=== PATIENT | male | born 1985 | race Caucasian/White ===

== ENCOUNTER 2020-12-19 10:56 | Outpatient (CLI) | payer OTHER, SELFPAY ==
--- NOTE | ~2020-12-19 | MR_ITS ---
EXAMINATION: MR brain IAC wo/w con DATE: 12/19/2020 12:14 INDICATION: Dizziness. Tinnitus. TECHNIQUE: Magnetic resonance imaging (MRI) of the brain, brainstem, and internal auditory canals was performed without and with 16 mL MultiHance intravenous contrast. Sequences included sagittal and ax ial T1-weighted FSE, axial diffusion-weighted FS EPI, axial T2*-weighted GRE, axial T2-weighted FLAIR Propeller, axial T2-weighted Propeller, small cqrxa-ww-fcca coronal FIESTA, small svpox-sa-fhqs yasmine nal T1-weighted FSE, and small yvgrl-qs-cejs axial T1-weighted SPGR. Postcontrast sequences included axial T1-weighted FSE, small ccgqn-sa-yvsd coronal T1-weighted FSE, and small cbslg-ge-aylr axial T1- weighted SPGR. Apparent diffusion coefficient (ADC) maps were created. COMPARISON: None. FINDINGS: There is no intracranial hemorrhage, acute infarction, or abnormal intracranial mass lesion . The ventricles are normal in size. There is mild mucosal thickening in the paranasal sinuses. The i nternal auditory canals and inner and middle ears are normal. The mastoid air cells are normal. There are no pathologically enlarged lymph nodes. IMPRESSION: 1. Normal brain. Reviewed, dictated and finalized at location A. IMPRESSION: 1. Normal brain.
[2020-12-19 11:35] LABS: Estimated Glomerular Filt Rate > 60
== END 2020-12-19 10:57 | disposition home or self-care (01) ==
PROVIDERS: Visit Provider Otolaryngology
DX: R42 Dizziness and giddiness (principal)
CPT/HCPCS: 70553; A9577

== ENCOUNTER 2021-01-02 07:53 | Outpatient (CLI) | payer OTHER, SELFPAY | END 2021-01-02 07:54 | disposition home or self-care (01) | LOC: ANHAUDIO 07:55 | PROVIDERS: Visit Provider Otolaryngology | DX: R42 Dizziness and giddiness (principal) | CPT/HCPCS: 92537; 92540; 92546 ==

== ENCOUNTER 2021-01-11 07:50 | Outpatient (RCR) | payer OTHER, SELFPAY ==
--- NOTE | 2021-01-11 09:28 | PTOPEVAL ---
PHYSICAL THERAPY EVALUATION AND PLAN OF CARE 01-11-21 Thank you for referring Jony Galindo to [facility] for the diagnosis of dizziness. Jony is scheduled to be seen for therapy? 1 x/week for 6 weeks. His treatment will be initiated for cervicogenic and headaches as the cause of his dizziness, with continuing to monitor for other vestibular issues. Please review, sign, date and return this plan of care EDGAR. I agree with and certify that the following plan of care is medically necessary. Referring Physician Date Attending Provider: Benito Cortez MD *PT Outpatient Evaluation Document 01/11/21 08:05 KLAUS (Rec: 01/11/21 09:27 KLAUS [id number]) Outpatient Past Medical History Past Medical History Source of Past Medical History Patient Neurological History Hx Neurological Disorders No Significant History Cardiovascular History Hx Cardiac Disorders No Significant History Respiratory History Hx Asthma Yes: as child; decreased as adult Hx COVID-19 Yes: Feb 2020---2 & 1/2 wk for recovery; Gastrointestinal History Hx Gastrointestinal Disorders No Significant History Genitourinary History Hx Genitourinary Disorders No Significant History Musculoskeletal History Hx Other Musculoskeletal Disorders Yes: neck and L shoulder pain- - history of active & played hockey Endocrine History Hx Endocrine Disorders No Significant History HEENT History Hx HEENT Disorders No Significant History Evaluation Information Problem Diagnosis dizziness Onset about one year Prior Level of Function Activity Level (Last 3 Months) Occupation computer- quantitative software engineer Activity of Daily Living Ability Independent Indoor/Home Mobility Independent Community Mobility Independent Stairs Ability Independent Functional Cognition (Planning, Shopping Independent , Taking Medications) Cooking Yes Cleaning Yes Laundry Yes Shopping Yes Driving Yes Comments Additional Prior Level of Function able to do all home and work Comments tasks; active and go to fitness center for exercises; reports doing tolerable weights, can do 6 reps without straining shoulder/neck Pain Assessment Timing of Pain Assessment Timing of Pain Assessment Assessment Pain Scale Pain Scale Used Numeric (1 - 10) Self Report Pain Assessment Bilateral Spine, Cervical Reported Pain Level 2 Radicular Pain Location
--- NOTE | 2021-01-18 09:58 | PCPTNOTE ---
Patient did not show up for scheduled appointment this date.
--- NOTE | 2021-01-23 10:24 | PCPTNOTE ---
Patient did not show up for scheduled appointment this date. Called & had to leave a message.
--- NOTE | 2021-02-01 16:07 | PCPTNOTE ---
Patient called & cancelled scheduled appointment this date due to work.
--- NOTE | 2021-03-25 10:12 | PCPTNOTE ---
PHYSICAL THERAPY DISCHARGE 03-25-21 Attending Provider: Benito Cortez MD Patient:Jony Galindo Date of :1985 Jony has not returned for any further treatments since the initial evaluation on 01/11/2021, therefore he will be discharged at this time. He called and canceled one and did not show for two scheduled appointments. Thank you [facility] this [facility]. Please review, sign, date and return this discharge summary EDGAR. I have been updated about the patient's current status and I agree with discharge from the above service at this time. Referring Physician Date
== END 2021-03-25 13:00 | disposition home or self-care (01) ==
LOC: ANHPT 07:50
PROVIDERS: Referring Provider Otolaryngology; Visit Provider Otolaryngology
DX: R42 Dizziness and giddiness (principal)
CPT/HCPCS: 97110; 97162

== ENCOUNTER → 2021-11-08 09:50 | Outpatient (CLI) | payer OTHER, SELFPAY ==
--- NOTE | ~2021-11-08 | US_ITS ---
EXAMINATION: US thyroid DATE: 11/08/2021 10:11 INDICATION: Goiter TECHNIQUE: Multiple ultrasound images of the thyroid were obtained. COMPARISON: None. FINDINGS: The right thyroid lobe measures 5.4 x 1.3 x 1.3 cm. The left thyroid lobe measures 2.8 x 1.1 x 1.4 c m. There are a couple tiny anechoic/hypoechoic likely mixed solid and cystic nodules in the left thy roid lobe, the larger measuring 2 mm. There is normal echotexture, echogenicity and vascular flow thr oughout the thyroid gland. IMPRESSION: 1. Couple tiny likely benign left thyroid nodules the larger measuring 2 mm which does not meet crite jaylen for either biopsy or follow-up. Reviewed, dictated and finalized at location A. IMPRESSION: 1. Couple tiny likely benign left thyroid nodules the larger measuring 2 mm whi ch does not meet criteria for either biopsy or follow-up.
== END ==
LOC: EXPGOSH 09:52 → EXPGOSHRAD 14:46
PROVIDERS: PCP Emergency Medicine; Visit Provider Emergency Medicine
DX: E04.9 Nontoxic goiter, unspecified (principal)
CPT/HCPCS: 76536

== ENCOUNTER 2024-10-19 13:06 | Outpatient (CLI) | payer OTHER, SELFPAY ==
--- OUTSIDE RECORDS SUMMARY | 2024-10-19 13:37 | XMS_ITS | Continuity of Care Document ---
Author Organization [facility] Address [address] [address] [place] [address] Phone Care Team Providers Care Back End Web Developer Name Role Phone Ridge Carlos MD Unavailable Unavailable Allergies, Adverse Reactions, Alerts Substance Reaction Status Criticality Penicillins Active No Information Medications Medication Instructions Dosage Effective Dates (start - stop) Status Comments Adderall 30 mg tablet take 1 tablet by oral route every morning 30 MG - Active pilocarpine 5 mg tablet take 1 tablet by oral route 3 times every day as needed 5 MG - Active PRN for dry mouth Pepcid 40 mg tablet take 1 tablet by oral route every day 40 MG - Active Procedures Procedure Date OFFICE/OUTPATIENT VISIT, EST PREV VISIT, EST, AGE 40-64 OFFICE/OUTPATIENT VISIT, EST OFFICE/OUTPATIENT VISIT, EST OFFICE/OUTPATIENT VISIT, EST OFFICE/OUTPATIENT VISIT, EST OFFICE/OUTPATIENT VISIT, EST PREV VISIT, EST, AGE 18-39 OFFICE/OUTPATIENT VISIT, EST OFFICE/OUTPATIENT VISIT, EST OFFICE/OUTPATIENT VISIT, EST PREV VISIT, EST, AGE 18-39 OFFICE/OUTPATIENT VISIT, EST OFFICE/OUTPATIENT VISIT, EST OFFICE/OUTPATIENT VISIT, EST PREV VISIT, EST, AGE 18-39 OFFICE/OUTPATIENT VISIT, EST OFFICE/OUTPATIENT VISIT, EST OFFICE/OUTPATIENT VISIT, EST PREV VISIT, EST, AGE 18-39 OFFICE/OUTPATIENT VISIT, EST OFFICE/OUTPATIENT VISIT, EST PREV VISIT, NEW, AGE 18-39 OFFICE/OUTPATIENT VISIT, NEW Advance Directives Directive Yes / No Effective Date File Name No Information Encounters Encounter Description Practice Location Reason(s) For Visit Diagnoses Date Provider Providers Copied on Encounter [facility], [address], [place], [place], [address], tel:[phone] [facility] No Information 5 Terrance Sabillon. [address], [place], [place], [address] , [place]. tel:[phone] OFFICE/OUTPA TIENT VISIT, EST [facility], [address], [place], [place], [address], [place] tel:[phone] [facility] sleep apnea1 (chief complaint) GERD1 (chief complaint) Obstructive sleep apnea hypopneaGERD w/o esophagitis 5 Terrance Mehta [address], [place], [place], [address] , [place]. tel:[phone] [facility], [address], [place], [place], [address], [place] tel:[phone] [facility] No Information 5 Terrance Sabillon. [address], [place], [place], [address] , [place]. tel:[phone] PREV VISIT, EST, AGE 40-64 [facility], [address], [place], [place], [address], [place] tel:[phone] [facility] Medicine physical (chief complaint) Encounter for general adult medical examination without abnormal findings 5 Terrance Sabillon. [address], [place], [place], [address] , [place]. tel:[phone] OFFICE/OUTPA TIENT VISIT, [facility], [address], [place], [place], [address], [place] tel:[phone] [facility] ADd (chief complaint) Attention deficit 4 Terrance Sabillon. [address], [place], [place], [address] , [place]. tel: [phone] OFFICE/OUTPA TIENT VISIT, [facility], [address], [place], [place], [address], [place] tel:[phone] [facility] ADD (chief complaint) dry mouth1 (chief complaint) Attention deficitSjogren syndrome 4 Terrance Mehta [address], [place], [place], [address] , [place]. tel: [phone] OFFICE/OUTPA TIENT VISIT, [facility], [address], [place], [place], [address], [place] tel:[phone] [facility] ADD (chief complaint) anxiety1 (chief complaint) sjogren1 (chief complaint) weight gain1 (chief complaint) Attention deficitGeneralized Anxiety DisorderDry mouthSjogren syndromeAbnormal weight gain 4 Terrance Mehta [address], [place], [place], [address] , [place]. tel: [phone] OFFICE/OUTPA TIENT VISIT, [facility], [address], [place], [place], [address], [place] tel:[phone] [facility] anxiety1 (chief complaint) ADD (chief complaint) dry mouth1 (chief complaint) Dry mouthSjogren syndromeGeneralized Anxiety DisorderAttention deficit Sep- 4 Terrance Mehta [address], [place], [place], [address] , [place]. tel:[phone] OFFICE/OUTPA TIENT VISIT, [facility], [address], [place], [place], [address], [place] tel:[phone] [facility] ADD (chief complaint) Anxiety1 (chief complaint) Attention deficitGeneralized Anxiety Disorder Jul- 4 Terrance Sabillon. [address], [place], [place], [address] , [place]. tel:[phone] PREV VISIT, EST, AGE 18-39 [facility], [address], [place], [place], [address], [place] tel:[phone] [facility] physical (chief complaint) Encounter for general adult medical examination without abnormal findings 4 Terrance Sabillon. [address], [place], [place], [address] , [place]. tel:[phone] OFFICE/OUTPA TIENT VISIT, EST [facility], [address], [place], [place], [address], [place] tel:[phone] [facility] ADD (chief complaint) anxiety1 (chief complaint) Attention deficitGeneralized Anxiety Disorder 3 Terrance Sabillon. [address], [place], [place], [address] , [place]. tel:[phone] OFFICE/OUTPA TIENT VISIT, EST [facility], [address], [place], [place], [address], [place] tel:[phone] [facility] anxiety1 (chief complaint) ADD (chief complaint) Attention deficitGeneralized Anxiety Disorder 3 Terrance Sabillon. [address], [place], [place], [address] , [place]. tel:[phone] OFFICE/OUTPA TIENT VISIT, EST [facility], [address], [place], [place], [address], [place] tel:[phone] [facility] ADD (chief complaint) anxiety1 (chief complaint) sjogren1 (chief complaint) Attention deficitGeneralized Anxiety DisorderSjogren syndrome Jul- 3 Terrance Sabillon. [address], [place], [place], [address] , [place]. tel:[phone] PREV VISIT, EST, AGE 18-39 [facility], [address], [place], [place], [address], [place] tel:[phone] [facility] physical (chief complaint) Encounter for general adult medical examination without abnormal findings 3 Terrance Mehta [address], [place], [place], [address] , [place]. [phone] OFFICE/OUTPA TIENT VISIT, EST [facility], [address], [place], [place], [address], [place] tel:[phone] [facility] fatige1 (chief complaint) ADD (chief complaint) FatigueAttention deficitRaised antibody titer Sep-0 2 Terrance Mehta [address], [place], [place], [address] , [place]. [phone] OFFICE/OUTPA TIENT VISIT, [facility], [address] [place], [address], [place] tel:[phone] [facility] fatigue1 (chief complaint) GERD1 (chief complaint) anxiety1 (chief complaint) FatigueAttention deficitPsychogenic dysphagia including globus hystericusMyalgiaGe neralized Anxiety Disorder 2 Terrance Mehta [address], [place], [place], [address] , [place]. tel:[phone] OFFICE/OUTPA TIENT VISIT, [facility], [address] [place], [address], [place] tel:[phone] [facility] thyroid1 (chief complaint) headache1 (chief complaint) GERD1 (chief complaint) ADD (chief complaint) GoiterFatigueMuscle weaknessAttention deficitGERD w/o esophagitisMigraine w/o aura, not intractable, w/o status migrainosusGenerali zed Anxiety Disorder 2 Terrance Mehta [address], [place], [place], [address] , [place]. tel:[phone] PREV VISIT, EST, AGE 18-39 [facility], [address] [place] [place], [address], [place] tel:[phone] [facility] physical (chief complaint) Encounter for general adult medical exam w abnormal findingsAttention deficitGeneralized Anxiety DisorderFatigueSlee p apnea Jun- 2 Terrance Mehta [address], [place], [place], [address] , [place]. [phone] OFFICE/OUTPA TIENT VISIT, EST [facility], [address], [place], [place], [address], [place] [phone] [facility] ADD (chief complaint) fatigue1 (chief complaint) anxiety1 (chief complaint) libido1 (chief complaint) Attention deficitFatigueSleep apneaGeneralized Anxiety DisorderInsomniaDec reased libido 2 Terrance Mehta [address], [place], [place], [address] , [place]. [phone] OFFICE/OUTPA TIENT VISIT, EST [facility], [address], [place], [place], [address], [place] [phone] [facility] ADD (chief complaint) libido1 (chief complaint) fatigue1 (chief complaint) insomnia1 (chief complaint) anxiety1 (chief complaint) vertigo1 (chief complaint) Attention deficitInsomniaSlee p apneaFatigueDecreas ed libidoGeneralized Anxiety DisorderVertigo 1 Terrance Mehta [address], [place], [place], [address] , [place]. [phone] PREV VISIT, EST, AGE 18-39 [facility], [address], [place], [place], [address], [place] tel:[phone] [facility] Medicine physical (chief complaint) Encounter for general adult medical examination without abnormal findings 1 Terrance Mehta [address], [place], [place], [address] , [place]. [phone] OFFICE/OUTPA TIENT VISIT, EST [facility], [address], [place], [place], [address], tel:[phone] [facility] ADD (chief complaint) insomnia1 (chief complaint) Attention deficitInsomnia 0 Terrance Mehta [address], [place], [place], [address] , . tel:[phone] OFFICE/OUTPA TIENT VISIT, EST [facility], [address] [place], [address], [phone] [facility] fatigue1 (chief complaint) sleep apnea1 (chief complaint) Sleep apneaAttention deficitFamily history of endo, nutritional and metabolic diseases 0 Terrance Mehta [address], [place], [place], [address] , . [phone] PREV VISIT, NEW, AGE 18-39 [facility], [address] [place], [address], tel:[phone] [facility] Physical (chief complaint) Encounter for general adult medical exam w abnormal findingsFatigueSlee p apneaAttention deficit 0 Terrance Mehta [address], [address] , . tel:[phone] Family History Family Member Type Diagnosis Age At Onset Mother Problem (finding) Alive and well Sister Problem (finding) Thyroid disorder Father Problem (finding) Alive and well Payers Payer name Insurance type Covered green party ID Authoriza tiloyd(s) [facility] CI [id number] Social History Type Description Quantity Date Captured Comments Alcohol Use Details Unknown Caffeine Use Details Unknown Tobacco Use Status No Information Smoking Status No Information Sex Male Chief Complaint And Reason For Visit No Information Plan Of Treatment Date Type Action Status Referral Referred To: Myrtle Castaneda MD [address] [place], [place], [address] Ordered: Referrals: Myrtle Castaneda MD. Evaluate and treat ordered Referral Ordered: US THYROID ordered Referral Ordered: SLEEP STUDY, ATTENDED ordered History Of Present Illness Encounter Date Complaint History Of Prese nt Illness sleep apnea1 pt has history o f mild sleep apnea in the past but he did not want to use cpap Pt has been feeling more tired recently with worsening snoring and he stops breathing during sleep per Pt is interested in sleep study again in lab. Pt does feel tired in the morning and throughout the day GERD1 Pt has chronic G ERD Pt doing well with pepcid. physical Pt needs annual physical Pt has been having GERD symptoms lately. Pt notices some nausea without vomiting pt denies any abd pain, early satiety. Pt has ADD Pt doing ok with adderall. Pt has sjogren and he uses pilocarpine for dry mouth sometimes Pt has ADD Pt doing ok with adderall. Pt no longer feels anxious or depressed and he is off lexapro and doing ok Pt denies any suicidal or homicidal thought .Pt denies any crying spells ADd Patient has ADD. Patient has inattentive type. Patient feels scatterbrained. Patient feel poor focus and difficulty completing tasks. Patient states that Adderall is helping with symptoms. Patient feels more focused. Pt feels more energy. Patient denies any headache, dry mouth, headache, chest pain. Patient denies any appetite loss. ADD Patient has ADD. Patient has inattentive type. Patient feels scatterbrained. Patient feel poor focus and difficulty completing tasks. Patient states that Adderall is helping with symptoms. Patient feels more focused. Pt feels more energy. Patient denies any headache, dry mouth, headache, chest pain. Patient denies any appetite loss. dry mouth1 Pt has sjogren s yndrome with dry mouth .Pt needs pilocarpine refilled Pt doing ok anxiety1 Pt has chronic a nxiety and depression Pt doing well with lexapro and he rarely needs to take xanax. Pt denies any suicidal or homicidal thought Pt denies any crying spells. sjogren1 Pt has sjogren w ith chronic dry mouth Pt doing ok with pilocarpine Pt also takes adderall which makes the dry mouth worse. Pt denies any oral ulcers. or taste change ADD Patient has ADD. Patient has inattentive type. Patient feels scatterbrained. Patient feel poor focus and difficulty completing tasks. Patient states that Adderall is helping with symptoms. Patient feels more focused. Pt feels more energy. Patient denies any headache, dry mouth, headache, chest pain. Patient denies any appetite loss. weight gain1 Pt has been gain ing weight. Pt has not been diet and exercising dry mouth1 Pt has dry mouth due to sjogren disease Pt sees rheumatology. Pt takes pilocarpine from rheumatology and he needs it refilled. He was prescribed TID but he only takes once per day at night. he is doing ok. pt denies any taste change ADD Patient has ADD. Patient has inattentive type. Patient feels scatterbrained. Patient feel poor focus and difficulty completing tasks. Patient states that Adderall is helping with symptoms. Patient feels more focused. Pt feels more energy. Patient denies any headache, dry mouth, headache, chest pain. Patient denies any appetite loss. anxiety1 Pt has chronic a nxiety and depression Pt takes lexapro and xanax PRn and doing ok Pt denies any suicidal or homicidal thought Pt denies any crying spells ADD Patient has ADD. Patient has inattentive type. Patient feels scatterbrained. Patient feel poor focus and difficulty completing tasks. Patient states that Adderall is helping with symptoms. Patient feels more focused. Pt feels more energy. Patient denies any headache, dry mouth, headache, chest pain. Patient denies any appetite loss. Anxiety1 Pt has chronic a nxiety and depression pt takes lexapro and xanax PRN and doing ok Pt denies any suicidal or homicidal thought Pt denies any crying spells. physical Pt needs annual physical pt has chronic anxiety and depression Pt doing ok with lexapro and xanax PRn Pt denies any suicidal or homicidal thought pt denies any crying spells. Patient has ADD. Patient has inattentive type. Patient feels scatterbrained. Patient feel poor focus and difficulty completing tasks. Patient states that Adderall is helping with symptoms. Patient feels more focused. Pt feels more energy. Patient denies any headache, dry mouth, headache, chest pain. Patient denies any appetite loss. Pt has sjogren syndrome Pt is trying diet control. ADD Patient has ADD. Patient has inattentive type. Patient feels scatterbrained. Patient feel poor focus and difficulty completing tasks. Patient states that Adderall is helping with symptoms. Patient feels more focused. Pt feels more energy. Patient denies any headache, dry mouth, headache, chest pain. Patient denies any appetite loss. anxiety1 Pt has chronic a nxiety and depression Pt takes lexapro and xanax PRn and doing ok Pt denies any suicidal or homicidal thought. Pt denies any crying spells. Pt has not had the need to take xanax very much since starting lexapro. ADD Patient has ADD. Patient has inattentive type. Patient feels scatterbrained. Patient feel poor focus and difficulty completing tasks. Patient states that Adderall is helping with symptoms. Patient feels more focused. Pt feels more energy. Patient denies any headache, dry mouth, headache, chest pain. Patient denies any appetite loss. anxiety1 Pt has chronic a nxiety and depression Pt denies any suicidal or homicidal thought Pt denies any crying spells. Pt started lexapro 3 months ago and he is doing great ,Pt feels happier and more motivated as well. Pt denies any side effects ADD Pt has ADD. pt d oing ok with adderall Pt feels more focused. Pt denies any side effects . anxiety1 Pt has chronic a nxiety and depression Pt is extremely stressed out with work. Pt states that he has difficulty coping with stress. Pt has physical symptoms related to mental stress. Pt denies any suicidal or homicidal thought. Pt denies any crying spells sjogren1 Pt has sjogren d isease. Pt is not on any medications Pt states that he feels severe fatigue and diffuse pain, which usually triggers by severe stress. physical Pt needs annual physical pt has chronic fatigue. pt has dry mouth and dry eyes. pt has elevated JACI. He was evaluated by rheumatology and was diagnosed for active sjogren disease. Pt states that he is not on any treatment currently., Pt has chronic anxiety Pt denies any depression or any suicidal or homicidal thought. Pt denies any crying spells Pt also has ADD ,Pt doing ok with Adderall. fatige1 Pt c/o chronic s evere fatigue intermittently and he has to take adderall in order to have some energy. Pt also feels muscle weakness sometimes. Pt denies any joint pain. Pt states that he has some pain on his upper back as well. pt occasional has very mild tingling around his fingers but he has not had it for a while. . Pt sometimes notices cyanosis of toe regardless of temperature. He does feel some cold toes even in the heat. Pt denies any active symptoms. Pt has been taking adderall for a while which does help but not as much as in the past. Pt has mild sleep apnea only. Pt states that he feels so tired during the day and he is not able to focus and concentration. Pt states that he feels mentally fatigue. Pt did not think cymbalta helped at all. Pt had negative myositis panel and connective tissue panel showed positive JACI. pt c/o short term memory loss as well. Pt had sleep study done which showed mild sleep apnea ADD Pt states that h e feels not mc to focus with severe daytime fatigue even taking adderall 30 mg fatigue1 Pt c/o chronic s evere fatigue intermittently and he has to take adderall in order to have some energy. Pt also feels muscle weakness sometimes. Pt denies any joint pain. Pt states that he has some pain on his upper back as well. pt occasional has very mild tingling around his fingers but he has not had it for a while. . Pt sometimes notices cyanosis of toe regardless of temperature. He does feel some cold toes even in the heat. Pt denies any active symptoms. Pt has been taking adderall for a while which does help but not as much as in the past. Pt has mild sleep apnea only anxiety1 Pt has mild anxi ety. Pt denies any depression any suicidal or homicidal thought .Pt denies any crying spells. Pt weaned himself off wellbutrin and doing ok GERD1 pt has mild GERD which was treated with protonix but he still feels some globus sometimes with occasional hoarseness. Pt denies any sore throat. Pt denies any dysphagia thyroid Pt has family hi story of bhanu disease. Pt states that he feels very fatigue, cloudy brained and overall weakness. Pt states that his muscle feels weak and he has some very mild numbness/fuzzy and tingling feeling all over body sometimes. Pt states that he feels that he does not feel himself sometimes he denies any hallucination or any delusional symptoms. Pt denies any dysphagia. Pt noticed a nodule below the maddison's apple for several days and he notices that he is aware of when he tries to swallow but he denies any dysphagia. Pt also notices slightly hoarseness. Pt denies any sore throat. headache1 Pt has been havi ng chronic and recurrent headache 2-3 per week. Pt has occasional throbbing headache on one side which last only several seconds. Pt denies any vomiting. Pt does have some photophobia and feels very sensitive to noise as well. pt denies any ear pain Pt denies any tinnitus. Pt feels occasional nausea and dizziness as well. He sal[place] any vision change. GERD Pt notices occas ional reflux for long time Pt does not feel that it is bad enough to be treated. ADD Pt has ADD. Pt d oing ok with adderall. physical Pt needs annual physical Pt has chronic anxiety and depression and he has a lot of stress at work and he has been taking wellbutrin which really helped his symptoms. he denies any suicidal or homicidal thought. Pt denies any crying spells. Pt takes xanax PRN and doing ok. Patient has ADD. Patient has inattentive type. Patient feels scatterbrained. Patient feel poor focus and difficulty completing tasks. Patient states that Adderall is helping with symptoms. Patient feels more focused. Pt feels more energy. Patient denies any headache, dry mouth, headache, chest pain. Patient denies any appetite loss. Pt has mild fatigue and he has mild sleep apnea. Pt still has not heard from CPAP yet. libido1 Pt has poor libi do with poor stamina pt denies any testicular pain or atrophy or nodule his testosterone is ok. Pt denies any ED anxiety1 Pt has chronic a nxiety Pt also has history of mild depression Pt states that his depression is getting worst lately Pt denies any suicidal or homicidal thought Pt denies any crying spells fatigue1 Pt has chronic s evere fatigue and he feels headache and dizzy every morning, despite good night sleep. Pt even drinks coffee but still feels tired .pt states that the fatigue seems to be worse in the morning but gradually gets better towards later of the day and he then has hard time falling asleep. Pt has a very stressful job and he feels that he can not shut his mind down at night. pt has not heard from [facility] yet ADD Pt has ADD. Pt t akes adderall PRn which works well but he has some difficulty with falling asleep sometimes with Adderall. pt denies any other side effects fatigue1 Pt has chronic s evere fatigue and he feels headache and dizzy every morning, despite good night sleep. Pt even drinks coffee but still feels tired .pt states that the fatigue seems to be worse in the morning but gradually gets better towards later of the day and he then has hard time falling asleep. Pt has a very stressful job and he feels that he can not shut his mind down at night insomnia1 Pt has chronic i nsomnia, Pt feels difficulty falling asleep even without adderall. Pt rarely takes adderall. Pt is trying melatonin which helps somewhat anxiety1 Pt has mild anxi ety Pt denies any depression or any suicidal or homicidal thought. Pt takes xanax PRN and doing ok ADD Pt has ADD. Pt t akes adderall PRn which works well but he has some difficulty with falling asleep sometimes with Adderall. pt denies any other side effects libido1 Pt has mild low libido without ED for the past several months. pt also notices decreasing stamina. Pt denies any testicular pain, atrophy or nodule vertigo1 Pt recently visi ronald ENT/sleep about mild intermittent vertigo. Pt denies any ear pain or tinnitus or sinus symptoms Pt had normal MRI of brain and he supposes to follow up with ENT soon physical Pt needs annual physical. Patient has ADD. Patient has inattentive type. Patient feels scatterbrained. Patient feel poor focus and difficulty completing tasks. Patient states that Adderall is helping with symptoms. Patient feels more focused. Pt feels more energy. Patient denies any headache, dry mouth, headache, chest pain. Patient denies any appetite loss. insomnia1 Pt has intermitt ent insomnia and mild anxiety Pt has a small amount of xanax which he takes PRn qhs and works well. Pt rarely takes it Pt sometimes has some anxiety at night which causes him not able to sleep well Pt denies any snoring or any trouble with breathing at night. Pt denies any depression or any suicidal thought Pt denies any crying spells ADD Patient has ADD. Patient has inattentive type. Patient feels scatterbrained. Patient feel poor focus and difficulty completing tasks. Patient states that Adderall is helping with symptoms. Patient feels more focused. Pt feels more energy. Patient denies any headache, dry mouth, headache, chest pain. Patient denies any appetite loss. Pt states that he feels like a new person since taking adderall .Pt only takes PRn during weekdays, not on weekend fatigue1 Pt feels fatigue , cloudy feeling, poor focus, sluggish feeling for a while Pt fels restless at night Pt has hard time focus and completing tasks. Pt states that he has been taking adderall and he feels about 100% better Pt feels much more focused and the cloudy feeling in his brain resolved and he feels well rested and more energy throughout the day and he also has been sleeping better as well. He denies any chest pain, palpitation, headache, dry mouth, appetite loss. Pt only takes adderall during the weekdays and he skips it during weekend sleep apnea1 Pt has only mild sleep apnea. . His o2 sat is ok. He does have some snoring episodes he states that he has been sleeping much better since taking adderall during the day He denies any waking up at night with breathing issue. Physical Pt needs annual physical Pt feels fatigue, lightheadedness and foggy and cloudy feeling for several months pt states that he does not snore. Pt has a mattress which tracks his sleep and he has poor REM sleep He does not move his limb a lot .Pt states that he sometimes wakes up suddenly unable to breath. Pt denies any weight gain or loss Pt denies any dry skin or constipation Pt feels irritable due to cloudy feeling sometimes Pt denies any anxiety or depression or any chest pain or palpitation. Pt states that his work is very demanding and he has difficulty time staying mentally sharp while at work. Pt also has strong family history of thyroid disease but he is not sure the type. His sister and brother both have some type of thyroid disease. Instructions Date Instruction Additional Infor mation No Information Assessments Type Assessment Date No Information
--- OUTSIDE RECORDS SUMMARY | 2024-10-19 13:37 | XMS_ITS | Clinical Summary ---
Author Organization [facility] Address [address] [place] [address] Phone Care Team Providers Care Environmental Research Scientist Name Role Phone Ridge Carlos Primary Care Provider [phone] Allergies Active Allergy Reactions Criticality Noted Date Comments Penicillins Other (see Comments) 01/14/2021 Patient states he was told when he was a kid but it was never confirmed Medications Multiple Vitamin (MULTI-VITAMIN PO) Take by mouth. Activ e meclizine (ANTIVERT) 12.5 MG Tablet Take 1 Tablet by mouth every 8 hours as needed for Dizziness or Nausea. 30 Tablet 1 Active Active Problems No known active problems Social History Tobacco Use Types Packs/Day Years Used Date Smoking Tobacco: Never Smokeless Tobacco: Never Alcohol Use Standard Drinks/Week Comments Yes 2 (1 standard drink = 0.6 oz pur e alcohol) may have 1-2 drinks a week Sex and Gender Information Value Date Recorded Sex Assigned at Not on file Legal Sex Male 8:26 AM CDT Gender Identity Not on file Sexual Orientation Not on file Last Filed Vital Signs Vital Sign Reading Time Taken Comments Blood Pressure 120/68 01/14/2021 10:34 AM CDT Pulse 102 01/14/2021 10:34 AM CDT Temperature 36.2 C (97.2 F) 01/14/2021 10:34 AM CDT Respiratory Rate 16 01/14/2021 10:34 AM CDT Oxygen Saturation 96% 01/14/2021 10:34 AM CDT Inhaled Oxygen Concentration - - Weight 76.8 kg (169 lb 4.8 oz) 01/14/2021 10:34 AM CDT Height 185.4 cm (6' 1) 01/14/2021 10:34 AM CDT Body Mass Index 22.34 01/14/2021 10:34 AM CDT Plan of Treatment Health Maintenance Due Date Last Done Comments Hepatitis C Virus (HCV) Screening 1985 TdaP Immunization 1985 Hepatitis B Immunization (1 of 3 - 19+ 3-dose series) 08/12/2002 Influenza Immunization (#1) 2023 SARS-COV-2 Immunization ( season) 2023 01/25/2021, 07/16/2020, 06/25/2020 Respiratory Syncytial Virus (RSV) Immunization (Adult) (1 - 1-dose 75+ series) 08/12/2058 Meningococcal Immunization (ACWY) Aged Out No longer eligible b ased on patient's age to complete this topic Pneumococcal Immunization Combined Aged Out No longer eligible b ased on patient's age to complete this topic Rotavirus Immunization Aged Out No lo nger eligible based on patient's age to complete this topic Insurance [facility] Care Teams Environmental Research Scientist Relationship Specialty Start Date End Date Ridge Carlos [address] [place] [address] PCP - General Family Medicine 01/14/21
--- OUTSIDE RECORDS SUMMARY | 2024-10-19 13:37 | XMS_ITS | Patient Health Record ---
Author Organization [facility] Address [address] [place] [address] Care Team Providers Care Self Storage Manager Name Role Phone Myrtle Castaneda Unavailable [phone] Ridge Carlos MD Unavailable Unavailable Reason For Referral No Information Medications Medication SIG (Take, Route, Frequency, Duration) Notes Start Date End Date Status Adderall 30 MG take 1 tablet (30 mg) by oral route once daily before breakfast Oral 1 Active PILOCARPINE HCL 5 MG TABLET 5 mg TAKE 1 TABLET (5 MG) BY ORAL ROUTE 3 TIMES PER DAY NEEDED *Reorder from [employer] for eRx and Interaction Alerts* 04/23/2022 Active Plan Of Treatment No Information Insurance Providers Payer Name Payer Address Payer Phone Subscriber Number Group Number Insured Name Patient Relationship to Insured Coverage Start Date Coverage End Date [employer] [address] [place], [place] [id number] Jony Galindo Self - patient is the insured
--- NOTE | 2024-11-09 11:51 | P.SLEEP_ITS ---
Sleep Study Date of Study: 10/19/24 Ordering Provider: Ridge Carlos MD Interpreting Physician: Tierra Anderson MD Sleep Study Type: Polysomnogram Height: 1.85 m Weight: 77.111 kg Body Mass Index: 22.4 Neck Circumference (inches): 15 Fluker: 15 Reason for Sleep Study Hypersomnolence * 06/27/2019; Snap home sleep test; total apnea index 4.1, hypopnea index 24.2, central apnea index 1.4, AHI 5.2, RDI 26.4. Lowest oxygen saturation 91%. No time spent below 88%. Infrequent snoring. BMI was 23.6, weight 179 lb. Neck circumference 38.1 cm. Sleep History Jony Galindo is a 39-year-old man with excessive daytime sleepiness. He takes Adderall for concentration. He is always tired in the day no matter how much sleep he has had. He had a home sleep test and tested positive for mild obstructive sleep apnea 5 years ago. The symptoms are now worse.l He frequently awakens from sleep feeling short of breath. He frequently wakes at night with heartburn, belching or coughing.??He occasionally snores, rarely snores loudly enough that others complain. He frequently has trouble sleeping when he has a cold. He occasionally wakes up gasping for breath during the night. He frequently has breathing problems at night observed by others. He frequently sweats excessively at night. He occasionally notices his heart pounding or beating irregularly during the night. He occasionally falls asleep during the day. He rarely falls asleep involuntarily, never falls asleep while driving. He never experiences loss of muscle tone with strong emotion. He frequently has daytime difficulty at work due to excessive sleepiness, he is a lead software developer. He never feels paralyzed on waking or falling asleep. He r kadi experiences vivid dreams upon waking or falling asleep. He occasionally feels afraid of going to sleep. He never has nightmares. He rarely recalls his dreams. He constantly has thoughts racing through his mind. He frequently feels sad, depressed, or anxious. He occasionally notices parts of his body jerk. He never kicks during the night. He never feels crawling or aching feelings in his legs. He never feels leg pain at night. He occasionally has morning jaw pain, constantly grinds his teeth at night. He uses a mouth guard for this condition. He frequently feels bothered by pain during the day, frequently awakened by pain during the night. He occasionally wakes up feeling stiff in the morning, a nd he rarely wakes feeling sore or achy. He frequently awakens with pain in his neck, spine, or joints. he has memory problems, concentration difficulties, headaches and fatigue. Normal bedtime is 10:00 p.m., falling asleep within 15 minutes, waking once at night to go to the bathroom and then he returns to sleep within 5 minutes but on occasion, this may take up to an hour.. His normal wake time is 5:30 a.m.. He maintains the same schedule on weekends. He estimates getting between 6 and 7 hours of sleep at night. He does not take naps in the afternoon or evening. A short nap lasting 10-15 minutes is not refreshing. He is usually drowsy for 3 hours after waking. He feels better in the evening compared to other times of day. 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 Respiratory parameters of chest and abdominal movements were recorded with Respiratory Inductance Plethysmography belts. Oxygen saturation was recorded by pulse oximetry. Video monitoring was also performed. Sleep stages, periodic limb movements, and EEG arousals were scored in 30 second epochs according to the criteria of the AASM Scoring Manual. The Apnea-Hypopnea Index was calculated using CMS guidelines for definition of hypopnea with 4% O2 desaturations while scoring respiratory events. The patient did not take a sleep aid for this study. Patient used his mouth guard during the study which he uses at home. He had a normal sleep latency of 7.1 minute, a delayed REM latency. His sleep efficiency was 50%. He had 2 long episodes of wake during the night. This may have been due sleeping in an unfamiliar environment. this is why a sleep aid is recommended for a night in the sleep lab and less than MSLT will follow. The patient did not meet criteria for split night study so this was conducted as a full night basic nocturnal polysomnogram. At 12:48 a.m. the computer shut down due to a battery backup problem. It was restored and again at 1:15 a.m. the computer shut down again and had to be restarted. All of the data was recovered. This did not materially affect the interpretation of the data. Sleep latency was 7.1 minutes which is normal. The REM latency was 265 minutes which is delayed. The patient had alpha intrusion noted throughout the night in REM and non-REM sleep. Alpha waves are generally associated with relaxation and wakefulness. They are not normally seen during sleep. Alpha intrusion can disrupt normal sleep architecture and lead to non restorative sleep with daytime fatigue and can be associated with a variety of conditions including anxiety, depression, fibromyalgia, chronic fatigue, circadian rhythm problems and obstructive sleep apnea. This is not a disease in and of itself but indicates that there may be a not other process going on. Sleep Architecture The total recording time was 430.8 minutes. The total sleep time was 216.0 minutes. Sleep latency was 7.1 minutes. REM latency was 265.0 minutes. Sleep efficiency was 50.1%. The patient had 24 awakenings for an awakening index of 6.7. Wake after sleep onset time was 207.5 minutes. The patient spent 28.5 minutes, 13.2% of total sleep time in Stage N1. The patient spent 126.0 minutes, 58.3% in Stage N2. The patient spent 50.5 minutes, 23.4% in Stage N3. The patient spent 11.0 minutes, 5.1% in Stage REM sleep. Respiratory Analysis The patient had no hypopneas, no obstructive apneas, no mixed apneas, and no central apneas for an overall Apnea Hypopnea Index of 0. The REM Apnea Hypopnea Index was 0. The NREM Apnea Hypopnea Index was 0. The patient had a Central Apnea Hypopnea Index of 0. There were no Respiratory Effort Related Arousals. The Respiratory Disturbance Index is 0.6 events per hour. There was no evidence of Jhony-Woodward Respirations. Arousals There were 72 total arousals for an arousal index of 20.0. There were 55 spontaneous arousals for an index of 15.3. There were 4 arousals due to respiratory events for an index of 1.1. There was 1 arousal due to periodic limb movements for an index of 0.3. There were 12 arousals due to isolated limb movements for an index of 3.3. Periodic Limb Movements The patient had 16 isolated limb movements with an index of 4.4. The patient had 6 periodic limb movements with an index of 1.7. Patient had a total of 22 limb movements with a total limb movement index of 6.1. Oximetry Data The patient had an average oxygen saturation of 96.4% in sleep with a minimum oxygen saturation of 94% and a maximum oxygen saturation of 99%. The patient had 2 oxygen desaturations that were 4% or greater for a desaturation index of 0.6. The patient spent no time with an oxygen saturation below 88%. Snoring Profile Snoring was mild. Cardiac Profile The EKG showed normal sinus rhythm, average pulse rate of 77.5 bpm with a minim um pulse of rate of 51 bpm and a maximum pulse rate of 121 bpm. No arrhythmias noted. EEG Profile Unremarkable, no evidence of seizures. Assessment and Plan Assessment and Plan (1) Excessive daytime sleepiness: Code(s): G47.19 - Other hypersomnia Status: Acute Assessment and Plan: This nocturnal polysomnogram on 10/19/2024 does not show significant sleep disordered breathing. The patient had an apnea-hypopnea index of 0. Using a 3% criteria his apnea-hypopnea index was 2.2 which is still in the normal range. The lowest saturation was 94%. He had a low sleep efficiency, 50.1% so he only slept for half of the night. The patient had alpha intrusion during his sleep in REM and in non-REM. Alpha waves are generally associated with relaxation and wakefulness. They are not normally seen during sleep. Alpha intrusion can disrupt normal sleep architecture and lead to non restorative sleep with daytime fatigue. This can be associated with a variety of conditions including anxiety, depression, fibromyalgia, chronic fatigue, circadian rhythm problems and obstructive sleep apnea. This is not a disease in and of itself but indicates that there may be a not other process going on. Clinical correlation is recommended. Patient should be screened for anxiety and depression. If he has a mood disorder, treating the mood disorder should improve quality of sleep and should lead to improvement in daytime functioning. The patient estimates getting 6 or 7 hours of sleep but on this test he only slept half the night. Although he has excessive daytime sleepiness, this can be explained by fragmented sleep, alpha intrusion, and he should be treated for possible mood disorder. He has no features of narcolepsy. He does not require a PSG with an MSLT to follow. He does not require naps in the day time. (2) Bruxism: Code(s): F45.8 - Other somatoform disorders Status: Acute Assessment and Plan: Patient uses a mouth guard at night, and he used it at the beginning of this test. Bruxism was not seen on this study but sometimes it is difficult to see during a nocturnal polysomnogram. Data The data obtained during this sleep study is adequate for interpretation. Certification This sleep study has been reviewed by a board certified sleep medicine physician.
[2024-11-11 14:11] VITALS: BMI 22.4
== END 2024-10-20 06:03 | disposition home or self-care (01) ==
PROVIDERS: PCP Emergency Medicine; Visit Provider Emergency Medicine
DX: G47.33 Obstructive sleep apnea (adult) (pediatric) (principal); G47.19 Other hypersomnia; F45.8 Other somatoform disorders
CPT/HCPCS: 95810